=== PATIENT | male | born 1950 | race Hispanic/Latino ===

== ENCOUNTER 2017-03-21 09:20 | Emergency (ER) | payer BC, MEDICARE, SELFPAY ==
[2017-03-21 10:35] LABS: Hematocrit 28.9 % (42.0-52.0); Red Blood Cell (RBC) Count 3.76 mill/uL (4.70-6.10); White Blood Cell (WBC) Count 6.8 thou/uL (4.8-10.8)
[2017-03-21 10:56] LABS: ALT (SGPT) 19 U/L (8-55); AST (SGOT) 17 U/L (5-34); Alkaline Phosphatase 289 U/L (40-150); Anion Gap 15 mmol/L (10-20); BUN (Urea Nitrogen) 14 mg/dL (8.4-25.7); Calc. Creatinine Clearance 0 mL/min (70-130); Calcium 9.1 mg/dL (7.8-10.44); Carbon Dioxide 24 mmol/L (23-31); Chloride 103 mmol/L (98-107); Estimated GFR-MDRD Greater than 90; Globulin 2.3 g/dL (2.4-3.5); Lipase 6 U/L (8-78); Protein, Total 6.3 g/dL (5.8-8.1)
[2017-03-21 11:01] LABS: Troponin I Less than 0.010 ng/mL (< 0.028)
[2017-03-21 11:06] LABS: Band 23 % (5-11); Metamyelocyte 8 % (0-0); Microcytosis SLIGHT = 6-15 cells (100X) (0-5/hpf); Myelocyte 13 % (0-0); Neutrophil 30 % (42-75); Nucleated RBC 3 % (0); Polychromasia MODERATE = 3-4 cells (100X) (0-2/hpf)
[2017-03-21] MEDS ORDERED: Morphine 10 MG/ML VIAL ONE (11:22)
--- NOTE | 2017-03-21 11:41 | CT ---
CT ABDOMEN AND PELVIS WITH IV CONTRAST: HISTORY: abdominal pain. Liver mass. FINDINGS: The lung bases are clear. Osseous structures are diffusely sclerotic. Centered within the central portion of the lateral segment left liver lobe is a lobular heterogeneously enhancing predominantly low central density mass measuring up to 9.4 x 8.7 cm greatest diameters. The more peripheral porti ons of the lateral segment left liver lobe show poor enhancement, likely related to partial vascular obstruction. The spleen measures up to 19.8 cm in length. Dilated venous structures are present near the splenic hilum. Enlarged lymph nodes are present throughout the upper retroperitoneum and central mesentery . Urinary bladder is incompletely distended. Lack of oral contrast limits evaluation of the bowel. There is no evidence of obstruction. IMPRESSION: 1. Large left liver lobe mass. Primary liver neoplasm is favored. There is involved abdominal danny opathy. 2. Findings of portal venous hypertension includes severe splenomegaly and splenic varices. POS: [facility]
[2017-03-21 11:46] LABS: Bilirubin Negative (Negative); Blood, Urine Negative (Negative); Glucose, Urine (Dipstick) Negative (Negative); Ketone, Urine Negative (Negative); Nitrite Negative (Negative); Protein, Urine (Dipstick) Negative (Neg-Trace); Urobilinogen 0.2 mg/dL (0.2-1.0)
[2017-03-21 11:47] LABS: PTT 32.3 SEC (22.9-36.1); Prothrombin Time 14.8 SEC (12.0-14.7)
[2017-03-21] MEDS ORDERED: ISOVUE-370 76%-LOCM 1 ML ONE (16:16)
--- NOTE | 2017-03-30 16:40 | EKG ---
Test Reason : Blood Pressure : / mmHG Vent. Rate : 082 BPM Atrial Rate : 082 BPM P-R Int : 140 ms QRS Dur : 088 ms QT Int : 378 ms P-R-T Axes : 061 005 060 degrees QTc Int : 441 ms Normal sinus rhythm Normal ECG Confirmed by KADEN FLORES, YI ([id number]), associate editor KIEL ARMSTRONG ([id number]) on 03/30/2017 4:40:21 PM Referred By: Confirmed By:YI ALFONSO MD
== END 2017-03-21 14:20 | disposition home or self-care (01) ==
LOC: ERS 09:20
DX: R16.0 Hepatomegaly, not elsewhere classified (principal); R71.8 Other abnormality of red blood cells
CPT/HCPCS: 74177; 80053; 81003; 82105; 82378; 82553; 83615; 83690; 84484; 84550; 85025; 85060; 85610; 85730; 93005; 96374; J2270

== ENCOUNTER 2017-04-19 10:06 | Inpatient (IN) | payer MEDICARE, BC, MEDICAID ==
[2017-04-18 10:24] VITALS: BMI 20.9
[2017-04-19] MEDS ORDERED: Fentanyl 100 MCG/2 ML VIAL ONE ×3 (11:15→16:01)
[2017-04-19] MEDS ORDERED: Ketorolac Tromethamine 30 MG/ML VIAL IVP PRN (13:12)
[2017-04-19] MEDS ORDERED: Promethazine HCl 25 MG/ML VIAL IM PRN (13:12)
[2017-04-19] MEDS ORDERED: Ondansetron HCl/PF 4 MG/2 ML Vial IVP PRN ×2 (13:12→14:30)
[2017-04-19] MEDS ORDERED: Meperidine HCl/PF 25 MG/ML VIAL SLOW IVP PRN (13:12)
[2017-04-19] MEDS ORDERED: Promethazine HCl 25 MG/ML VIAL SLOW IVP PRN (13:12)
[2017-04-19 14:24] LABS: Prothrombin Time 17.5 SEC (12.0-14.7)
[2017-04-19] MEDS ORDERED: Acetaminophen 325 MG TAB PO PRN (14:30)
[2017-04-19] MEDS ORDERED: Bisacodyl 10 MG SUPP PR PRN (14:30)
[2017-04-19] MEDS ORDERED: hydrALAZINE 20 MG/ML VIAL SLOW IVP PRN (14:30)
[2017-04-19] MEDS ORDERED: Diabetic Tussin 200 MG/10 ML UDCUP PO PRN (14:30)
[2017-04-19] MEDS ORDERED: Senokot 8.6 MG TAB PO PRN (14:30)
[2017-04-19] MEDS ORDERED: Milk Of Magnesia 30 ML UDCUP PO PRN (14:30)
[2017-04-19] MEDS ORDERED: Chloraseptic Spray 180 ml Bottle PO PRN (14:30)
[2017-04-19] MEDS ORDERED: cloNIDine 0.1 MG TAB PO PRN (14:30)
[2017-04-19] MEDS ORDERED: Artificial Tears 18 DROP/0.9 ML EA EYE PRN (14:30)
[2017-04-19] MEDS ORDERED: Zolpidem Tartrate 5 MG TAB PO PRN (14:30)
[2017-04-19] MEDS ORDERED: Eucerin (Mineral Oil/Petrolatum,White) 30 gm Jar TOP PRN (14:30)
[2017-04-19] MEDS ORDERED: Loperamide HCl 2 MG CAP PO PRN (14:30)
[2017-04-19] MEDS ORDERED: Loratadine 10 MG TAB PO PRN (14:30)
[2017-04-19] MEDS ORDERED: Mag-Al 1200 mg/1200 mg/30 ML UDCUP PO PRN (14:30)
[2017-04-19] MEDS ORDERED: Sodium Chloride 0.65% Nasal 44 ML BOT EA NARE PRN (14:30)
[2017-04-19] MEDS ORDERED: Ondansetron ODT 4 MG TAB PO PRN (14:30)
[2017-04-19 14:50] LABS: ALT (SGPT) 10 U/L (8-55); AST (SGOT) 11 U/L (5-34); Alkaline Phosphatase 238 U/L (40-150); Anion Gap 11 mmol/L (10-20); BUN (Urea Nitrogen) 11 mg/dL (8.4-25.7); Bilirubin, Total 1.5 mg/dL (0.2-1.2); Calc. Creatinine Clearance 86 mL/min (70-130); Calcium 8.8 mg/dL (7.8-10.44); Carbon Dioxide 28 mmol/L (23-31); Chloride 100 mmol/L (98-107); Estimated GFR-MDRD Greater than 90; Globulin 2.1 g/dL (2.4-3.5); Protein, Total 5.5 g/dL (5.8-8.1)
[2017-04-19] MEDS: Dextrose 5 % And 0.9 % NaCl 1,000 ML IV SCH (15:05)
--- NOTE | 2017-04-19 15:06 | HP ---
PRIMARY CARE PHYSICIAN: [facility] call admission. REASON FOR ADMISSION: Liver mass, splenomegaly and abdominal pain. HISTORY OF PRESENT ILLNESS: A 66-year-old male who has abdominal pain for almost 5 months. He points in epigastric and periumbilical region pain. Pain is gradually getting worse. He lost 20 pounds weight in couple of months. He also has poor appetite. He denies any nausea, vomiting, contreras temesis. He denies any melena, hematochezia. He denies any diarrhea. The patient had a CT scan of liver in 03/21/2017 and at that time, patient was found with large left liver lobe mass as well as ab dominal lymphadenopathy and portal venous hypertension with severe splenomegaly and splenic varices. The patient was also seen by Dr. Singer as an outpatient basis and he was reported to a gastroente rologist for endoscopic evaluation. The patient came to hospital today for upper and lower endoscopy which was done by Dr. Corona and which was essentially unremarkable. At this point, the patient's a bdominal pain is not improved and he has about 8/10 in intensity pain. There is no specific relation of pain with food. He denies any fever or chills, but he does report generalized weakness and inter mittent constipation. REVIEW OF SYSTEMS: The following complete review of systems was negative, unless otherwise mentioned in the HPI or below: Constitutional: Weight loss or gain, ability to conduct usual activities. Skin: Rash, itching. Eyes: Double vision, pain. ENT/Mouth: Nose bleeding, neck stiffness, pain, tenderness. Cardiovascular: Palpitations, dyspnea on exertion, orthopnea. Respiratory: Shortness of breath, wheezing, cough, hemoptysis, fever or night sweats. Gastrointestinal: Poor appetite, abdominal pain, heartburn, nausea, vomiting, constipation, or diarr hea. Genitourinary: Urgency, frequency, dysuria, nocturia. Musculoskeletal: Pain, swelling. Neurologic/Psychiatric: Anxiety, depression. Allergy/Immunologic: Skin rash, bleeding tendency. Please see my HPI for pertinent positives and negatives. All other review of system reviewed and neg ative except as mentioned in the HPI. PAST MEDICAL HISTORY: Reviewed and negative. PAST SURGICAL HISTORY: Reviewed and negative. PAST PSYCHIATRIC HISTORY: Reviewed and negative. SOCIAL HISTORY: The patient is originally from [place] [facility]. He is in [place] for almost 11 years. He denies any tobacco, alcohol or illicit drug abuse. FAMILY HISTORY: No strong family history of premature coronary artery disease, stroke or cancer. ALLERGIES: No known drug allergies. CURRENT HOME MEDICATIONS: The patient is not taking any prescribed or non-prescribed medication. HOSPITAL COURSE: The patient had upper and lower endoscopy earlier today by Dr. Corona. PHYSICAL EXAMINATION: VITAL SIGNS: Currently, blood pressure 119/71, pulse 84, respiratory rate 16, temperature 98.0, weig ht 64.4 kilograms. GENERAL: Patient is currently alert, awake, no obvious acute distress. HEENT: Normocephalic, atraumatic. Eyes: Pupils round, reactive to light. Extraocular muscles inta ct. ENT: Oropharynx within normal limits. Moist mucous membranes. No oral lesions. No pharyngeal eryt contreras, no exudate. NECK: Supple, no JVD, no thyromegaly, no carotid bruit. LUNGS: Clear to auscultation without any rhonchi or rales. CARDIAC: S1, S2 regular without any significant murmur. ABDOMEN: Patient does have hepatosplenomegaly, abdominal tenderness. No peritoneal signs, no guardi ng, no rigidity. Bowel sounds present. No suprapubic tenderness. BACK: Unremarkable, no CVA tenderness. EXTREMITIES: Upper extremity, passive movements of all joints are normal. Lower extremities, no serge ma. Good peripheral pulsation. SKIN: No skin rash. HEMATOLOGICAL: No lymphadenopathy. SIGNIFICANT LABS: CT of the abdomen and pelvis showing sclerotic osseous structure, 9.4 x 8.7 cm sola er mass in the left liver lobe with vascular obstruction, spleen is 19.8 cm in length. Lymph node is enlarging of the retroperitoneum and central mesentery. CBC recently done on 03/21/2017: WBC 6.8, hemoglobin 9.2, platelets 477 with bandemia. INR 1.2. BMP: Sodium 138, potassium 4.4, chloride 101 , carbon dioxide 25, anion gap 16, BUN 18, creatinine 0.91, glucose 98. Uric acid 7.5, calcium 8.6, phosphorus 4.1. Ferritin 488, bilirubin 0.8, AST 13, ALT 14, alkaline phosphatase 311, lactate dehyd rogenase 1037, CK-MB 0.4, troponin I less than 0.010, albumin 4.1, lipase 62. Alpha fetoprotein leve l less than 2. CEA 0.78. Urinalysis normal. ASSESSMENT AND PLAN/IMPRESSION: 1. Acute abdominal pain, chronic. The patient has abdominal pain for almost 4 or 5 months which is gradually getting worse, likely related with underlying liver mass and splenomegaly. Patient's pain will be controlled with morphine while in hospital. We will try to treat underlying constipation as well. 2. Left liver lobe mass. The patient alpha fetoprotein level is normal, carcinoembryonic antigen is also normal. He has significant splenomegaly and elevated LDH. Underlying hematological malignancy cannot be entirely excluded. At this point, we will consult hematology and medical assistant supervisor for fu rther evaluation. We will try to rule out tuberculosis as well. This patient will need a liver biop sy to rule out underlying pathology. 3. Splenomegaly, likely related with portal hypertension problem or liver mass, probably vascular ob struction. 4. Microcytic anemia. The patient had EGD and colonoscopy that is normal. He also has elevated rosalina ritin level, so this is normocytic anemia. We will repeat labs today. 5. Deep venous thrombosis prophylaxis. Sequential compression device boots only. No Lovenox becaus e the patient is planned for liver biopsy. 6. Gastrointestinal prophylaxis, Pepcid 20 mg p.o. b.i.d. 7. Code status: The patient is FULL CODE. Patient does not have any surrogate decision maker. Disposition and plan based on clinical course. We are expecting patient's stay in the hospital more than 2 midnights. Plan of care discussed with the patient in detail. While in hospital, we will als o send Entamoeba histolytica, HIV, QuantiFERON-TB test and hepatitis profile.
[2017-04-19 15:07] LABS: Anisocytosis MODERATE=16-30 cells (100X) (0-5/hpf); Band 31 % (5-11); Blast 2 % (0-0); Hematocrit 23.5 % (42.0-52.0); Hypochromia SLIGHT = 6-15 cells (100X) (0-5/hpf); Mean Platelet Volume 7.7 fL (7.4-10.4); Metamyelocyte 10 % (0-0); Microcytosis SLIGHT = 6-15 cells (100X) (0-5/hpf); Myelocyte 10 % (0-0); Neutrophil 32 % (42-75); Nucleated RBC 2 % (0); Ovalocytes SLIGHT = 2-5 cells (100X) (0-1/hpf); Polychromasia MODERATE = 3-4 cells (100X) (0-2/hpf); Promyelocytes 1 % (0-0); Reactive Lymphocytes 1 % (0-10); Red Blood Cell (RBC) Count 3.12 mill/uL (4.70-6.10); Tear Drops SLIGHT = 2-5 cells (100X) (0-1/hpf); White Blood Cell (WBC) Count 7.6 thou/uL (4.8-10.8)
[2017-04-19] MEDS ORDERED: Propofol 200 MG/20 ML VIAL ONE (15:09)
[2017-04-19] MEDS ORDERED: Lidocaine 1% PF 5 ML VIAL ONE (15:09)
[2017-04-19] MEDS ORDERED: Morphine PF 1 MG/ML SYR IVP PRN (15:30)
[2017-04-19] MEDS ORDERED: Midazolam HCl 2 mg/2 ml Vial ONE (16:01)
[2017-04-19] MEDS: Morphine 2 mg/2ml in 0.9% NaCl PF SYRINGE IVP PRN (16:56)
--- NOTE | 2017-04-19 19:31 | CT ---
CT GUIDED PERCUTANEOUS BIOPSY OF A LEFT HEPATIC LOBE MASS. 04/19/17 HISTORY: Left hepatic lobe mass in a patient with splenomegaly and what appear to be varices. TECHNIQUE: After informed consent was obtained, patient was placed on the CT table in the supine position. A gri d localizer was placed over the epigastric region and axial noncontrasted CT scan was obtained. An ar ea was marked and meticulously prepped and draped in the usual sterile fashion. Skin and subcutaneous tissues were infiltrated with buffered 1% lidocaine for local anesthesia. Small skin incision was made. A 17 gauge guide needle was advanced followed by three axial noncontrasted C T images. The needle was repositioned and then advanced into the mass with final position again confi rmed with [address] images. A total of three 18 gauge core needle biopsy specimens wer e obtained utilizing coaxial technique through the 17 gauge guide needle. The inner stylet was replac ed. The needle was removed. Hemostasis was achieved with direct pressure. Dry sterile dressing was pl aced. Followup CT scan of the abdomen demonstrates no perihepatic fluid or fluid collection or findin gs to suggest hematoma. Patient tolerated the procedure well without immediate complication. Patient's vital signs remained s table during the procedure as well as postprocedure. Patient was transported to his hospital room in stable condition. IMPRESSION: Technically successful CT guided percutaneous biopsy of a left hepatic lobe mass. Pathology is gris jackson pending. Pathologist was available for evaluation of the obtained specimens. POS: [facility]
--- NOTE | 2017-04-19 20:04 | OP ---
PROCEDURES PERFORMED: Esophagogastroduodenoscopy and colonoscopy. PREPROCEDURE DIAGNOSES: Microcytic anemia, concerned for possible gastrointestinal malignancy with m assive splenomegaly and necrotic liver mass. POSTPROCEDURE DIAGNOSES: 1. Esophagogastroduodenoscopy normal except for extrinsic compression of the stomach by the mass of liver and spleen. No primary malignancy seen or ulcer seen. 2. Normal colonoscopy up to including the cecum. ANESTHESIA: TIVA. PROCEDURE IN DETAIL: After the patient was informed of the risks, benefits, possible complications o f endoscopy including perforation, bleeding, reactions to medication and aspiration, informed consent was obtained. The patient was brought to the endoscopy suite where he was sedated in gradual fashio n. Once she was comfortable, a bite block was placed in the incisural orifice. The endoscope was ad vanced through the esophagus, stomach and second and third portion of duodenum and slowly removed. T here was a good visualization of the mucosa. There was massive extrinsic compression of the stomach, but there was no intrinsic gastric disease. There was normal distensibility of the stomach and norm al appearance of the wall with no evidence of infiltration or linitis plastica. Retroflexed views we re normal. The scope was removed. The patient was turned in the room. A rectal exam was performed. The endoscope was advanced through anal canal through the colon to cecum was identified by ileoceca l valve and appendiceal orifice again, there is extrinsic compression of the colon, but no intrinsic colon lesions or masses. No polyps are seen. The scope was removed. The patient tolerated the proc edure well with no complications.
[2017-04-19] MEDS: Famotidine 20 MG TAB PO SCH (20:40)
[2017-04-19] MEDS: HYDROcodone/Acetaminophen 10/325 mg Tablet PO PRN (20:43)
--- NOTE | 2017-04-19 23:26 | CON ---
DATE OF CONSULTATION: 04/19/2017 HISTORY OF PRESENT ILLNESS: Ms. Torres is a 66-year-old gentleman who has come in today for EGD and c olonoscopy with regard to a large liver mass and massive splenomegaly. Apparently he has had develop ment of weight loss, abdominal pain over the past several months. He had been in the emergency room in the first week of March and sent home. He was seen by primary physician and sent to Dr. Eliezer bartlett, Dr. Singer tried to get a liver biopsy done regarding the chronic liver mass, but he could not get that done as he was not insured. AFP and CEA were normal. His hemoglobin was 9.3 with an MCV of 71, platelet count of 602, and . He was sent to see me for possible endoscopy. This was set u p for today and he underwent EGD and colonoscopy, noted an extrinsic compression of the stomach and c olon, there were no other lesions noted as far as a source of malignancy. The patient has had signif icant weight loss, but no fever, chills or sweats. He has had no sick contacts. He is being admitte d now for further evaluation, diagnosis and pain control. ALLERGIES: None known. PAST MEDICAL HISTORY: Stomach ulcers, liver mass and anemia. SOCIAL HISTORY: He is retired, does not smoke, drink or use drugs. MEDICATIONS: Methadone for pain related to his abdomen. FAMILY HISTORY: Negative for malignancy or GI tract, otherwise. PAST SURGICAL HISTORY: Negative. REVIEW OF SYSTEMS: As per HPI. ASSESSMENT: Solitary mass, left lobe of liver, necrotic, 9 x 8 cm with enlarged lymph nodes in the u pper retroperitoneum, some splenic varices, normal AFP, CEA and negative endoscopies. He has got mas sive splenomegaly palpable to the pelvic brim. PLAN: 1. Admission to Internal Medicine workup with liver biopsy and further studies as necessary. 2. Consult Oncology. 3. Pain control. PHYSICAL EXAMINATION: VITAL SIGNS: Stable. HEENT: Within normal limits. NECK: Supple. LUNGS: Clear. HEART: Regular rate and rhythm without clicks or murmurs. ABDOMEN: Notable for masses, splenomegaly in left abdomen. There is no rebound. There is no guardi ng.
[2017-04-20] MEDS: Dextrose 5 % And 0.9 % NaCl 1,000 ML IV SCH ×2 (03:07→14:54)
[2017-04-20] MEDS: HYDROcodone/Acetaminophen 10/325 mg Tablet PO PRN ×4 (03:09→16:15)
[2017-04-20 06:07] LABS: Anion Gap 10 mmol/L (10-20); BUN (Urea Nitrogen) 11 mg/dL (8.4-25.7); Calc. Creatinine Clearance 84 mL/min (70-130); Calcium 8.6 mg/dL (7.8-10.44); Carbon Dioxide 28 mmol/L (23-31); Chloride 103 mmol/L (98-107); Estimated GFR-MDRD Greater than 90
[2017-04-20 06:51] LABS: Anisocytosis SLIGHT = 6-15 cells (100X) (0-5/hpf); Band 22 % (5-11); Hematocrit 23.3 % (42.0-52.0); Mean Platelet Volume 7.7 fL (7.4-10.4); Metamyelocyte 16 % (0-0); Microcytosis SLIGHT = 6-15 cells (100X) (0-5/hpf); Myelocyte 3 % (0-0); Neutrophil 35 % (42-75); Nucleated RBC 1 % (0); Polychromasia MODERATE = 3-4 cells (100X) (0-2/hpf); Reactive Lymphocytes 1 % (0-10); Red Blood Cell (RBC) Count 3.07 mill/uL (4.70-6.10); Tear Drops MODERATE= 6-15 cells (100X) (0-1/hpf); White Blood Cell (WBC) Count 7.1 thou/uL (4.8-10.8)
[2017-04-20] MEDS: Famotidine 20 MG TAB PO SCH ×2 (07:58→20:00)
--- NOTE | 2017-04-20 12:05 | PRG ---
DATE OF SERVICE: 04/20/2017 SUBJECTIVE: The patient had his liver biopsy yesterday and has had some pain last night, but he is d oing much better today. He is eating well. He is having bowel movements. OBJECTIVE: VITAL SIGNS: Temperature 97.9, pulse 88, respiratory rate 16, blood pressure 114/68. CHEST: Clear. CARDIOVASCULAR: Regular rate and rhythm. ABDOMEN: Soft, nontender, with hepatosplenomegaly. LABORATORY DATA: Shows hepatitis panel be nonreactive, HIV is nonreactive. Chemistries show glucose of 120. PT is 17.5 with an INR of 1.5. Hemoglobin is 7.8 with hematocrit of 23.3. ASSESSMENT: 1. Liver mass - status post biopsy. 2. Splenomegaly. RECOMMENDATIONS: The patient is stable for discharge from a GI standpoint. He could follow up with his biopsy results as an outpatient.
--- NOTE | 2017-04-20 12:59 | PDOC.PN ---
- Subjective Encounter Start Date: 04/20/17 Encounter Start Time: 09:15 Subjective: no nausea or abd pain - Objective Resuscitation Status: Resuscitation Status FULL:Full Resuscitation MAR Reviewed: Yes Vital Signs & Weight: Vital Signs (12 hours) Temp Pulse Resp BP Pulse Ox 04/20/17 08:00 97.9 F 88 16 04/20/17 07:41 97.9 F 88 16 114/68 99 04/20/17 04:00 98.4 F 76 16 108/65 97 Weight Admit Weight 138 lb Weight 138 lb I&O: 04/19/17 04/20/17 04/21/17 06:59 06:59 06:59 Intake Total 1380 240 Balance 1380 240 Result Diagrams: 04/20/17 05:33 04/20/17 05:33 Phys Exam - Physical Examination HEENT: PERRLA, moist MMs Neck: no JVD, supple Respiratory: no wheezing, no rales Cardiovascular: RRR, no significant murmur Gastrointestinal: soft, positive bowel sounds hepatomegaly, splenomegaly++ Musculoskeletal: no edema, pulses present Neurological: non-focal, moves all 4 limbs Psychiatric: A&O x 3 Dx/Plan (1) Liver mass, left lobe Code(s): R16.0 - HEPATOMEGALY, NOT ELSEWHERE CLASSIFIED Status: Acute (2) Anemia Code(s): D64.9 - ANEMIA, UNSPECIFIED Status: Chronic Qualifiers: Anemia type: unspecified type Qualified Code(s): D64.9 - Anemia, unspecified (3) Abdominal pain Code(s): R10.9 - UNSPECIFIED ABDOMINAL PAIN Status: Acute Qualifiers: Abdominal location: right upper quadrant Qualified Code(s): R10.11 - Right upper quadrant pain - Plan had CT guided biopsy of large left hepatic lobe mass -: e.hystolytica serology, tb quantiferon labs pending -: cbc in am, Hb around 7g -: will add ferrous sulfate, B12 and folic acid -: dc plan in am, is on morphine, norco prn * . Review of Systems - Medications/Allergies Allergies/Adverse Reactions: Allergies Allergy/AdvReac Type Severity Reaction Status Date / Time No Known Allergies Allergy Verified 04/19/17 14:53 Medications: Current Medications Acetaminophen (Tylenol) 650 mg PO Q4H PRN PRN Reason: Headache/Fever or Pain Hydrocodone Bitart/Acetaminophen ([place] 10/325) 1 tab PO Q4H PRN PRN Reason: Moderate Pain (4-6) Last Admin: 04/20/17 11:48 Dose: 1 tab Al Hydroxide/Mg Hydroxide (Maalox) 30 ml PO Q6H PRN PRN Reason: Heartburn or Indigestion Artificial Tears (Tears Naturale) 0 drop EA EYE PRN PRN PRN Reason: Dry Eyes Bisacodyl (Dulcolax) 10 mg [place] Q24H PRN PRN Reason: Constipation Clonidine (Catapres) 0.1 mg PO Q4H PRN PRN Reason: Systolic BP > 180 Famotidine (Pepcid) 20 mg PO BID [facility] Last Admin: 04/20/17 07:58 Dose: 20 mg Guaifenesin (Robitussin Sf) 200 mg PO Q4H PRN PRN Reason: Cough Hydralazine HCl (Apresoline) 10 mg SLOW IVP Q4H PRN PRN Reason: Systolic BP > 180 Dextrose/Sodium Chloride (D5 0.9% Ns) 1,000 mls @ 75 mls/hr IV .[id number] [facility] Last Admin: 04/20/17 03:07 Dose: 1,000 mls Loperamide HCl (Imodium) 2 mg PO PRN PRN PRN Reason: Diarrhea/Loose Stools Loratadine (Claritin) 10 mg PO DAILYPRN PRN PRN Reason: Sinus Symptoms Magnesium Hydroxide (Milk Of Magnesium) 30 ml PO DAILYPRN PRN PRN Reason: Constipation Mineral Oil/White Petrolatum (Eucerin Cream) 0 gm TOP BIDPRN PRN PRN Reason: Dry Skin Morphine Sulfate/Sodium Chloride (Morphine 0.9% Nacl Pf 2 Mg/2ml) 2 mg IVP Q4H PRN PRN Reason: Severe Pain (7-10) Last Admin: 04/19/17 16:56 Dose: 2 mg Ondansetron HCl (Zofran Odt) 4 mg PO Q6H PRN PRN Reason: Nausea/Vomiting Ondansetron HCl (Zofran) 4 mg IVP Q6H PRN PRN Reason: Nausea/Vomiting Phenol (Chloraseptic [place] 180 Ml Bot) 0 ml PO PRN PRN PRN Reason: Sore Throat Senna (Senokot) 2 tab PO HSPRN PRN PRN Reason: Constipation Sodium Chloride ([place] Nasal [place] 0.65%) 0 ml EA NARE QIDPRN PRN PRN Reason: Nasal Congestion Zolpidem Tartrate (Ambien) 5 mg PO HSPRN PRN PRN Reason: Insomnia
[2017-04-20] MEDS: Ferrous Sulfate 325 MG TAB PO SCH (16:15)
[2017-04-20] MEDS: Morphine 2 mg/2ml in 0.9% NaCl PF SYRINGE IVP PRN (18:51)
[2017-04-21] MEDS: HYDROcodone/Acetaminophen 10/325 mg Tablet PO PRN ×2 (00:39→08:29)
[2017-04-21] MEDS: Dextrose 5 % And 0.9 % NaCl 1,000 ML IV SCH ×3 (00:42→17:48)
[2017-04-21 04:57] LABS: ALT (SGPT) 10 U/L (8-55); AST (SGOT) 12 U/L (5-34); Alkaline Phosphatase 229 U/L (40-150); Anion Gap 9 mmol/L (10-20); BUN (Urea Nitrogen) 9 mg/dL (8.4-25.7); Calc. Creatinine Clearance 91 mL/min (70-130); Calcium 8.4 mg/dL (7.8-10.44); Carbon Dioxide 27 mmol/L (23-31); Chloride 104 mmol/L (98-107); Estimated GFR-MDRD Greater than 90; Globulin 1.8 g/dL (2.4-3.5); Protein, Total 4.9 g/dL (5.8-8.1)
[2017-04-21 05:05] LABS: Band 28 % (5-11); Blast 6 % (0-0); Hematocrit 21.2 % (42.0-52.0); Mean Platelet Volume 7.5 fL (7.4-10.4); Metamyelocyte 10 % (0-0); Myelocyte 8 % (0-0); Neutrophil 28 % (42-75); Nucleated RBC 3 % (0); Red Blood Cell (RBC) Count 2.78 mill/uL (4.70-6.10); Tear Drops SLIGHT = 2-5 cells (100X) (0-1/hpf); White Blood Cell (WBC) Count 6.5 thou/uL (4.8-10.8)
[2017-04-21] MEDS: Morphine 2 mg/2ml in 0.9% NaCl PF SYRINGE IVP PRN ×3 (06:10→15:50)
[2017-04-21] MEDS: Ferrous Sulfate 325 MG TAB PO SCH ×2 (08:30→15:51)
[2017-04-21] MEDS: Famotidine 20 MG TAB PO SCH ×2 (08:30→19:48)
[2017-04-21] MEDS: Cyanocobalamin (Vitamin B-12) 1,000 MCG TAB PO SCH (08:30)
[2017-04-21] MEDS: Folic Acid 1 MG TAB PO SCH (08:31)
--- NOTE | 2017-04-21 09:03 | PRG ---
DATE OF SERVICE: 04/21/2017 SUBJECTIVE: The patient continues to complain of abdominal pain that seemed to be fairly well contro lled with medication. He is tolerating diet okay. OBJECTIVE: VITAL SIGNS: Temperature 98.8, pulse 79, respiratory rate 18, blood pressure 128/74. CHEST: Clear. CARDIOVASCULAR: Regular rate and rhythm. ABDOMEN: Soft with splenomegaly. Diffusely tender, but no rebound. LABORATORY DATA: Shows hemoglobin 7.1, hematocrit of 21.2. ASSESSMENT: 1. Liver mass - status post biopsy. 2. Splenomegaly. RECOMMENDATIONS: Await histopathology.
--- NOTE | 2017-04-21 13:35 | PDOC.PN ---
- Subjective Encounter Start Date: 04/21/17 Encounter Start Time: 11:00 Subjective: c/o abd pain, no nausea -: gets only 4 hrs relief with iv morphine - Objective Resuscitation Status: Resuscitation Status FULL:Full Resuscitation MAR Reviewed: Yes Vital Signs & Weight: Vital Signs (12 hours) Temp Pulse Resp BP Pulse Ox 04/21/17 08:40 98.8 F 79 18 128/74 97 04/21/17 08:00 98.8 F 79 18 Weight Admit Weight 138 lb Weight 138 lb I&O: 04/20/17 04/21/17 04/22/17 06:59 06:59 06:59 Intake Total 1380 2260 Balance 1380 2260 Result Diagrams: 04/21/17 03:45 04/21/17 03:45 Phys Exam - Physical Examination HEENT: PERRLA, moist MMs Neck: no JVD, supple Respiratory: no wheezing, no rales Cardiovascular: RRR, no significant murmur Gastrointestinal: soft, positive bowel sounds hepatosplenomegaly Musculoskeletal: no edema, pulses present Neurological: non-focal, moves all 4 limbs Psychiatric: A&O x 3 Dx/Plan (1) Liver mass, left lobe Code(s): R16.0 - HEPATOMEGALY, NOT ELSEWHERE CLASSIFIED Status: Acute (2) Anemia Code(s): D64.9 - ANEMIA, UNSPECIFIED Status: Chronic Qualifiers: Anemia type: unspecified type Qualified Code(s): D64.9 - Anemia, unspecified (3) Abdominal pain Code(s): R10.9 - UNSPECIFIED ABDOMINAL PAIN Status: Acute Qualifiers: Abdominal location: right upper quadrant Qualified Code(s): R10.11 - Right upper quadrant pain Comment: sec to liver mass - Plan will place him on MS Contin bid, bx results pending -: watch for resp depression, pt is norcotic naive -: iv morphine only for severe breakthrough pain -: no other sedative or hypnotics until he gets used to MS Contin -: flow cytometry is ordered on , dc plan in am if pain is controlled * . I have shown CT pictures to and patient at bedside and the reason for pain. Review of Systems - Medications/Allergies Allergies/Adverse Reactions: Allergies Allergy/AdvReac Type Severity Reaction Status Date / Time No Known Allergies Allergy Verified 04/19/17 14:53 Medications: Current Medications Acetaminophen (Tylenol) 650 mg PO Q4H PRN PRN Reason: Headache/Fever or Pain Hydrocodone Bitart/Acetaminophen ([place] 10/325) 1 tab PO Q4H PRN PRN Reason: Moderate Pain (4-6) Last Admin: 04/21/17 08:29 Dose: 1 tab Al Hydroxide/Mg Hydroxide (Maalox) 30 ml PO Q6H PRN PRN Reason: Heartburn or Indigestion Artificial Tears (Tears Naturale) 0 drop EA EYE PRN PRN PRN Reason: Dry Eyes Bisacodyl (Dulcolax) 10 mg [place] Q24H PRN PRN Reason: Constipation Clonidine (Catapres) 0.1 mg PO Q4H PRN PRN Reason: Systolic BP > 180 Cyanocobalamin (Vitamin B-12) 1,000 mcg PO DAILY [facility] Last Admin: 04/21/17 08:30 Dose: 1,000 mcg Docusate Sodium (Colace) 100 mg PO [facility] Famotidine (Pepcid) 20 mg PO BID [facility] Last Admin: 04/21/17 08:30 Dose: 20 mg Ferrous Sulfate (Feosol) 325 mg PO BID[facility] Last Admin: 04/21/17 08:30 Dose: 325 mg Folic Acid (Folvite) 1 mg PO DAILY [facility] Last Admin: 04/21/17 08:31 Dose: 1 mg Guaifenesin (Robitussin Sf) 200 mg PO Q4H PRN PRN Reason: Cough Hydralazine HCl (Apresoline) 10 mg SLOW IVP Q4H PRN PRN Reason: Systolic BP > 180 Dextrose/Sodium Chloride (D5 0.9% Ns) 1,000 mls @ 75 mls/hr IV .[id number] [facility] Last Admin: 04/21/17 05:02 Dose: Not Given Loperamide HCl (Imodium) 2 mg PO PRN PRN PRN Reason: Diarrhea/Loose Stools Loratadine (Claritin) 10 mg PO DAILYPRN PRN PRN Reason: Sinus Symptoms Magnesium Hydroxide (Milk Of Magnesium) 30 ml PO DAILYPRN PRN PRN Reason: Constipation Mineral Oil/White Petrolatum (Eucerin Cream) 0 gm TOP BIDPRN PRN PRN Reason: Dry Skin Morphine Sulfate (Ms Contin) 15 mg PO Q12HR [facility] Morphine Sulfate/Sodium Chloride (Morphine 0.9% Nacl Pf 2 Mg/2ml) 2 mg IVP Q4H PRN PRN Reason: Severe Pain (7-10) Last Admin: 04/21/17 06:10 Dose: 2 mg Ondansetron HCl (Zofran Odt) 4 mg PO Q6H PRN PRN Reason: Nausea/Vomiting Ondansetron HCl (Zofran) 4 mg IVP Q6H PRN PRN Reason: Nausea/Vomiting Phenol (Chloraseptic [place] 180 Ml Bot) 0 ml PO PRN PRN PRN Reason: Sore Throat Senna (Senokot) 2 tab PO HSPRN PRN PRN Reason: Constipation Sodium Chloride ([place] Nasal [place] 0.65%) 0 ml EA NARE QIDPRN PRN PRN Reason: Nasal Congestion Zolpidem Tartrate (Ambien) 5 mg PO HSPRN PRN PRN Reason: Insomnia
[2017-04-21] MEDS: Morphine ER 15 MG TAB PO SCH (19:48)
[2017-04-21] MEDS ORDERED: Docusate 100 MG CAP PO SCH (21:00)
[2017-04-22] MEDS: Morphine 2 mg/2ml in 0.9% NaCl PF SYRINGE IVP PRN ×3 (00:25→12:10)
[2017-04-22] MEDS: Famotidine 20 MG TAB PO SCH (08:11)
[2017-04-22] MEDS: Folic Acid 1 MG TAB PO SCH (08:11)
[2017-04-22] MEDS: Morphine ER 15 MG TAB PO SCH (08:12)
[2017-04-22] MEDS: Dextrose 5 % And 0.9 % NaCl 1,000 ML IV SCH (08:12)
[2017-04-22] MEDS: Ferrous Sulfate 325 MG TAB PO SCH ×2 (08:12→16:28)
[2017-04-22] MEDS: Cyanocobalamin (Vitamin B-12) 1,000 MCG TAB PO SCH (08:13)
[2017-04-22 08:37] LABS: ALT (SGPT) 9 U/L (8-55); AST (SGOT) 10 U/L (5-34); Alkaline Phosphatase 218 U/L (40-150); Anion Gap 8 mmol/L (10-20); BUN (Urea Nitrogen) 7 mg/dL (8.4-25.7); Bilirubin, Total 1.1 mg/dL (0.2-1.2); Calc. Creatinine Clearance 92 mL/min (70-130); Calcium 8.4 mg/dL (7.8-10.44); Carbon Dioxide 28 mmol/L (23-31); Chloride 104 mmol/L (98-107); Estimated GFR-MDRD Greater than 90; Globulin 1.9 g/dL (2.4-3.5); Protein, Total 5.1 g/dL (5.8-8.1)
[2017-04-22 09:24] LABS: Anisocytosis SLIGHT = 6-15 cells (100X) (0-5/hpf); Band 9 % (5-11); Hematocrit 25.9 % (42.0-52.0); Mean Platelet Volume 7.7 fL (7.4-10.4); Metamyelocyte 4 % (0-0); Neutrophil 66 % (42-75); Ovalocytes SLIGHT = 2-5 cells (100X) (0-1/hpf); Polychromasia SLIGHT = 2-3 cells (100X) (0-2/hpf); Reactive Lymphocytes 2 % (0-10); Red Blood Cell (RBC) Count 3.41 mill/uL (4.70-6.10); Tear Drops SLIGHT = 2-5 cells (100X) (0-1/hpf); White Blood Cell (WBC) Count 7.5 thou/uL (4.8-10.8)
--- NOTE | 2017-04-22 12:13 | PDOC.PN ---
- Subjective Encounter Start Date: 04/22/17 Encounter Start Time: 07:15 Subjective: pain is better on MS contin -: no trouble breathing, is fully oriented now -: took his first MS Contin last night - Objective Resuscitation Status: Resuscitation Status FULL:Full Resuscitation MAR Reviewed: Yes Vital Signs & Weight: Vital Signs (12 hours) Temp Pulse Resp BP Pulse Ox 04/22/17 08:46 98.0 F 87 18 128/78 98 04/22/17 08:00 98.0 F 87 18 Weight Admit Weight 138 lb Weight 138 lb I&O: 04/21/17 04/22/17 04/23/17 06:59 06:59 06:59 Intake Total 2260 500 Balance 2260 500 Result Diagrams: 04/22/17 08:00 04/22/17 08:00 Phys Exam - Physical Examination HEENT: PERRLA, moist MMs Neck: no JVD, supple Respiratory: no wheezing, no rales Cardiovascular: RRR, no significant murmur Gastrointestinal: soft, positive bowel sounds hepatosplenomegaly Musculoskeletal: no edema, pulses present Neurological: non-focal, moves all 4 limbs Psychiatric: A&O x 3 Dx/Plan (1) Liver mass, left lobe Code(s): R16.0 - HEPATOMEGALY, NOT ELSEWHERE CLASSIFIED Status: Acute (2) Anemia Code(s): D64.9 - ANEMIA, UNSPECIFIED Status: Chronic Qualifiers: Anemia type: unspecified type Qualified Code(s): D64.9 - Anemia, unspecified (3) Abdominal pain Code(s): R10.9 - UNSPECIFIED ABDOMINAL PAIN Status: Acute Qualifiers: Abdominal location: right upper quadrant Qualified Code(s): R10.11 - Right upper quadrant pain Comment: sec to liver mass - Plan is going for bone marrow Bx today -: has f/u appt with on Saturday -: d/w Ms.Julie Clements, september dc home -: to continue MS Contin q12h -: Liver Bx results are pending and pt will f/u with onc * .
[2017-04-22] MEDS ORDERED: Sodium Bicarbonate 2.4 MEQ/5 ML ONE (13:58)
--- NOTE | 2017-04-22 16:23 | CT ---
RIGHT ILIAC WING BONE MARROW ASPIRATE. HISTORY: The patient with myelofibrosis. TECHNIQUE: Informed consent was obtained. The right iliac wing was localized using CT guidance. The overlying skin was prepped and draped in the usual sterile manner. A 1% Lidocaine solution was used to anesthe tize the overlying soft tissues. An 11-gauge BucketFeetshidi needle was placed into the right iliac wing. 20 mL of bone marrow aspirate was obtained. IMPRESSION: Successful right iliac wing bone marrow aspiration. No complications encountered during the course o f the bone marrow biopsy. POS: OSCAR
[2017-04-22 18:03] VITALS: BP 105/64; TEMP 98.1
--- NOTE | 2017-04-23 03:26 | DIS ---
DATE OF ADMISSION: 04/19/2017 DATE OF DISCHARGE: 04/22/2017 DISCHARGE DISPOSITION: To home. PRIMARY DISCHARGE DIAGNOSES: Left lobe liver mass, awaiting CT guided biopsy results; chronic anemia ; abdominal pain secondary to liver mass. PROCEDURES DONE DURING HOSPITALIZATION: The patient has had CT guided liver biopsy done on 7. He has had bone marrow biopsy done this morning. The results of both are pending. H&H 8.5 and 2 5, platelet count is 363, white count of 7.5. The patient has 6% blasts, 1% promyelocytes, 10% myelo cytes, 10% metamyelocytes, and 2% nucleated RBCs. Hepatitis panel was negative. HIV 1 and 2 were ne gative. Total bilirubin 1.5. AST and ALT within normal limits. Alkaline phosphatase is 238, albumi n is 3.4, BUN 11, creatinine 0.7. EGD with colonoscopy done by Dr. Corona on 04/19/2017 showed extri nsic compression of stomach by the mass of liver and spleen, no primary malignancy was seen or ulcers seen, normal colonoscopy up to including the cecum. DISCHARGE MEDICATIONS: MS Contin 15 mg p.o. twice daily, folic acid 1 mg p.o. daily, ferrous sulfate 325 mg p.o. twice daily, Colace 100 mg p.o. at bedtime, vitamin B12 of 1000 mcg p.o. daily. ALLERGIES: No known drug allergies. INPATIENT CONSULTS: Dr. Corona for Gastroenterology, Dr. Singer for Oncology. DISCHARGE PLAN: Patient to follow up with Dr. Singer on Saturday. He also needs follow up with Dr. Corona as advised. BRIEF COURSE DURING HOSPITALIZATION: Patient initially got admitted on the , please see detailed history and physical dictated by Dr. Mckeon on the day of admission. He has had abdominal pain with weight loss and known liver mass. He has had upper and lower endoscopies done during hospitalizatio n, which did not reveal any acute abnormalities or malignancy. Patient had extrinsic compression of stomach on endoscopy. CT guided liver biopsy has been obtained and the results are pending at [facility]. He has had abnormal CBC as described above and bone marrow biopsy was done this morning. The res ults of path is pending as well. The patient has a followup appointment scheduled with Dr. Singer on Saturday. He also needs to follow up with his primary care physician in [address] Corona as ad vised. Please note, patient's current abdominal pain due to stretching of liver capsule due to mass is controlled well on MS Contin 15 mg twice daily. Prescription for the same has been given for 15 d ays and he needs to renew the same with his primary oncologist. Please see a [id number] documentat sabina on [facility] for the day of discharge.
== END 2017-04-22 17:59 | disposition home or self-care (01) | DRG 436 ==
LOC: SDC 10:06 → T4-A 14:48
PROVIDERS: ADMIT Internal Medicine; ATTEND Internal Medicine Gastroenterology
PROC: 0DJ08ZZ Inspection of Upper Intestinal Tract, Via Natural or Artificial Opening Endoscopic (ICD-10-PCS; principal; 2017-04-19)
PROC: 0DJD8ZZ Inspection of Lower Intestinal Tract, Via Natural or Artificial Opening Endoscopic (ICD-10-PCS; 2017-04-19)
PROC: 0FB23ZX Excision of Left Lobe Liver, Percutaneous Approach, Diagnostic (ICD-10-PCS; 2017-04-19)
PROC: 07DR3ZX Extraction of Iliac Bone Marrow, Percutaneous Approach, Diagnostic (ICD-10-PCS; 2017-04-22)
DX: D37.6 Neoplasm of uncertain behavior of liver, gallbladder and bile ducts (principal); K76.6 Portal hypertension; R16.2 Hepatomegaly with splenomegaly, not elsewhere classified; D64.9 Anemia, unspecified; D50.9 Iron deficiency anemia, unspecified; K59.00 Constipation, unspecified; R10.9 Unspecified abdominal pain; R59.0 Localized enlarged lymph nodes
CPT/HCPCS: 20225; 36415; 47000; 77002; 77012; 80048; 80053; 80074; 85025; 85097; 85610; 86480; 86753; 87389; 88184; 88237; 88305; 88307; 88313; 88333; 88341; 88342; J2001; J2250; J2270; J2704; J3010

== ENCOUNTER 2017-04-29 14:07 | Outpatient (CLI) | payer BC, MEDICAID | END 2017-04-29 14:08 | disposition home or self-care (01) | LOC: BICRAD 14:07 | PROVIDERS: ATTEND Internal Medicine Medical Oncology | DX: C78.7 Secondary malignant neoplasm of liver and intrahepatic bile duct (principal); C80.1 Malignant (primary) neoplasm, unspecified | CPT/HCPCS: 71020 ==

== ENCOUNTER 2017-06-03 13:27 | Day surgery (SDC) | payer MEDICAID ==
[2017-06-03 13:52] VITALS: BP 129/74; TEMP 98.6
[2017-06-03] MEDS ORDERED: SODIUM CHLORIDE 0.9% IVPB SCH ×3 (14:15→14:30)
[2017-06-03] MEDS ORDERED: ONDANSETRON IVPB SCH (14:15)
[2017-06-03] MEDS ORDERED: DEXAMETHASONE IVPB SCH (14:15)
[2017-06-03] MEDS ORDERED: GEMCITABINE HCL IVPB SCH ×2 (14:15→14:30)
[2017-06-03] MEDS ORDERED: ADMIXTURE FEE CHEMO IVPB SCH (14:30)
[2017-06-03] MEDS ORDERED: PACLITAXEL PROTEIN BOUND IVPB SCH (14:30)
== END 2017-06-03 17:53 | disposition home or self-care (01) ==
LOC: ONC/OP 13:27
PROVIDERS: ATTEND Internal Medicine Medical Oncology
DX: Z51.11 Encounter for antineoplastic chemotherapy (principal); C78.7 Secondary malignant neoplasm of liver and intrahepatic bile duct; E11.9 Type 2 diabetes mellitus without complications; I10 Essential (primary) hypertension; Z79.891 Long term (current) use of opiate analgesic; Z79.899 Other long term (current) drug therapy; Z98.890 Other specified postprocedural states; Z87.891 Personal history of nicotine dependence
CPT/HCPCS: 36415; 80053; 82248; 83615; 84100; 84550; 96367; 96413; 96417; J1100; J2405; J7050; J9201; J9264

== ENCOUNTER 2017-06-10 13:43 | Day surgery (SDC) | payer MEDICARE, MEDICAID ==
[2017-06-10] MEDS ORDERED: Sodium Chloride 0.9% 20 ML ONE (13:54)
[2017-06-10] MEDS ORDERED: ONDANSETRON IVPB SCH (14:15)
[2017-06-10] MEDS ORDERED: DEXAMETHASONE IVPB SCH (14:15)
[2017-06-10] MEDS ORDERED: SODIUM CHLORIDE 0.9% IVPB SCH ×2 (14:15→15:00)
[2017-06-10] MEDS ORDERED: GEMCITABINE HCL IVPB SCH (15:00)
[2017-06-10] MEDS ORDERED: PACLITAXEL PROTEIN BOUND IVPB SCH (15:00)
[2017-06-10] MEDS ORDERED: ADMIXTURE FEE CHEMO IVPB SCH (15:00)
[2017-06-10 16:18] VITALS: BP 138/69
== END 2017-06-10 16:35 | disposition home or self-care (01) ==
LOC: ONC/OP 13:43
PROVIDERS: ATTEND Internal Medicine Medical Oncology
DX: Z51.11 Encounter for antineoplastic chemotherapy (principal); C80.1 Malignant (primary) neoplasm, unspecified; C78.7 Secondary malignant neoplasm of liver and intrahepatic bile duct; E11.9 Type 2 diabetes mellitus without complications; I10 Essential (primary) hypertension; Z79.891 Long term (current) use of opiate analgesic; Z79.899 Other long term (current) drug therapy; Z87.891 Personal history of nicotine dependence
CPT/HCPCS: 96367; 96413; 96417; A4216; J1100; J2405; J7050; J9201; J9264

== ENCOUNTER 2017-06-17 13:41 | Day surgery (SDC) | payer MEDICAID ==
[2017-06-17] MEDS ORDERED: diphenhydrAMINE 25 MG CAP PO SCH (14:00)
[2017-06-17] MEDS ORDERED: Acetaminophen 500 MG TAB PO SCH (14:00)
[2017-06-17] MEDS ORDERED: Sodium Chloride 0.9% 30 ML ONE (14:20)
[2017-06-17 21:32] VITALS: BP 109/63; TEMP 98.1
[2017-06-17 22:03] LABS: Anion Gap 11 mmol/L (10-20); BUN (Urea Nitrogen) 15 mg/dL (8.4-25.7); Calc. Creatinine Clearance 0 mL/min (70-130); Calcium 8.5 mg/dL (7.8-10.44); Carbon Dioxide 28 mmol/L (23-31); Chloride 96 mmol/L (98-107); Estimated GFR-MDRD Greater than 90; Glucose 110 mg/dL (80-115); Potassium 4.4 mmol/L (3.5-5.1); Sodium 131 mmol/L (136-145)
== END 2017-06-17 21:30 | disposition home or self-care (01) ==
LOC: ONC/OP 13:41
PROVIDERS: ATTEND Internal Medicine Medical Oncology
PROC: 30233N1 Transfusion of Nonautologous Red Blood Cells into Peripheral Vein, Percutaneous Approach (ICD-10-PCS; principal; 2017-06-17)
DX: D64.9 Anemia, unspecified (principal); D69.59 Other secondary thrombocytopenia; R16.1 Splenomegaly, not elsewhere classified; K76.6 Portal hypertension; Z79.891 Long term (current) use of opiate analgesic; Z79.899 Other long term (current) drug therapy
CPT/HCPCS: 36430; 80048; 86850; 86900; 86901; A4216; P9016

== ENCOUNTER 2017-06-24 15:01 | Day surgery (SDC) | payer MEDICARE, MEDICAID ==
[2017-06-24] MEDS ORDERED: Sodium Chloride 0.9% 20 ML ONE (15:22)
[2017-06-24] MEDS ORDERED: Ondansetron HCl/PF 10 MG in Sodium Chloride 0.9% 50 ML IVPB SCH (15:45)
[2017-06-24] MEDS ORDERED: PACLITAXEL PROTEIN BOUND IVPB SCH (15:45)
[2017-06-24] MEDS ORDERED: GEMCITABINE HCL IVPB SCH (15:45)
[2017-06-24] MEDS ORDERED: SODIUM CHLORIDE 0.9% IVPB SCH (15:45)
[2017-06-24] MEDS ORDERED: Dexamethasone 4 mg/ml Vial SLOW IVP SCH (15:45)
[2017-06-24 16:23] VITALS: TEMP 98.2
[2017-06-24 19:07] VITALS: BP 128/75
== END 2017-06-24 19:07 | disposition home or self-care (01) ==
LOC: ONC/OP 15:01
PROVIDERS: ATTEND Internal Medicine Medical Oncology
DX: Z51.11 Encounter for antineoplastic chemotherapy (principal); C78.7 Secondary malignant neoplasm of liver and intrahepatic bile duct; E11.9 Type 2 diabetes mellitus without complications; I10 Essential (primary) hypertension
CPT/HCPCS: 96367; 96375; 96413; 96417; A4216; J1100; J2405; J7050; J9201; J9264